=== PATIENT | male | born 1980 | race Two or more races ===

== ENCOUNTER 2017-04-23 07:10 | Day surgery (SDC) | payer BC ==
--- NOTE | 2017-04-22 17:47 | Pre-Procedure Note/Attestation ---
Pre-Procedure Note/Attestation Complete Prior to Procedure Planned Procedure: bilateral Procedure Narrative: 1. Septoplasty 2. SMR inf right turbinate 3. SMR inf left turbinate Indications for Procedure Pre-Operative Diagnosis: 1. Nasal septal deviation 2. Hypertrophied right inferior turbinate 3. Hypertrophied left inferior turbinate. Attestation I attest that I discussed the nature of the procedure; its benefits; risks and complications; and alternatives (and the risks and benefits of such alternatives ), prior to the procedure, with the patient (or the patient's legal pharmaceutical sales representative). I attest that, if there was a reasonable possibility of needing a blood transfusion, the patient (or the patient's legal pharmaceutical sales representative) was given the [place] Department [employer] standardized written summary, pursuant to the [place] Blood Safety Act ([place] Health and Safety Code # 1645, as amended). I attest that I re-evaluated the patient just prior to the surgery and that there has been no change in the patient's H&P, BEVERLY HEAD Apr 22, 2017 17:47
--- NOTE | 2017-04-22 17:48 | Brief Operative Note ---
Immediate Post Operative Note Operative Note Pre-op Diagnosis: 1. Nasal septal deviation 2. Hypertrophied right inferior turbinate 3. Hypertrophied left inferior turbinate. Procedure: 1. Septoplasty 2. SMR inf right turbinate 3. SMR inf left turbinate Post-op Diagnosis: 1.Nasal septal deviation 2. Hypertrophied right inferior turbinate 3. Hypertrophied left inferior turbinate Surgeon: Beverly Head Threading Machine Feeder Automatic: none Additional Surgeons: none Anesthesiologist: Aurea Anesthesia: general Specimen: none Complications: none Condition: stable Fluids: D5LR Estimated Blood Loss: volume - 10cc Packing: Stamberger nasal gel Implant(s) used?: No BEVERLY HEAD Apr 22, 2017 17:48
--- NOTE | 2017-04-22 17:56 | Discharge Instructions ---
Discharge Instructions Discharge Instructions Follow up with: Saturday04/29/17 9:45AM Diet: regular Resume Normal Activity?: No Activity: light activity Pneumonia Vaccine: pt refused vaccine Influenza Vaccine (Dec to May): pt refused vaccine Follow Up Orders Pt has printed inductions as well as rx for meds given to him pre op in office. Return to Work/School on: May 07, 2017 Special Instructions ice to face x 48 hours For Surgical Patients Dressing Care: may change Contact your physician for: bleeding, pain, tenderness, redness, swelling, yellowish discharge in the op. site For Congestive Heart Failure Reminder Report to your physician any weight gain of 5 pounds or more in one week. BEVERLY HEAD Apr 22, 2017 17:56
--- NOTE | 2017-04-22 23:30 | Pre-op HX & Phy Repo 2 SIG ---
DATE OF ADMISSION: 04/23/2017 DATE OF SURGERY: 04/23/2017 INDICATION FOR SURGERY: The patient is a 37-year-old male who has nasal airway obstruction and has failed nasal steroids and antihistamines. PAST MEDICAL HISTORY: Significant for the fact that he has never been a smoker. ALLERGIES: He has no known drug allergies. SOCIAL HISTORY: Single, no children. Denies issues with alcohol and drugs. Teaches martial arts. MAJOR EVENTS IN THE PAST: Broken back and a septoplasty when he was 14 years old. FAMILY HISTORY: Family members have diabetes mellitus. PHYSICAL EXAMINATION: VITAL SIGNS: Height 5 feet 8 inches, weight 185 pounds, BMI 28.13. Blood pressure 120/80, temperature 98.6, and pulse 76. This was done on 03/04/2017, so within the last few weeks. HEENT: The head is normocephalic. Eyes, PERRLA, EOMI. Lips, tongue, pharynx, and neck normal. No septal deviation. Hypertrophied bilateral inferior turbinates. HEART: Normal S1 and S2. No murmurs, bruits, gallops, or rubs. EXTREMITIES: Grossly normal. NEUROLOGIC: Cranial nerves II through XII grossly normal. GENITOURINARY: Not done, as not indicated, and he is followed by his regular PMD. ASSESSMENT: He has had a nasal septal deviation and hypertrophied right and left inferior turbinates. PLAN: He has been consented. We reviewed his signed consent for septoplasty and submucous resection of bilateral inferior turbinates. I also reviewed with family pre and postoperative care, for which he has printed instructions. He also has his prescriptions for [place] and amoxicillin. Aquilino White M.D. DR: KARIS JOB#: [id number] CC:
[2017-04-23] VITALS (11 sets, daily range): BP systolic 135–154; BP diastolic 78–93
[~2017-04-23] VITALS: Ht 175.3 cm; Wt 90.7 kg
[~2017-04-23 07:10] MED LIST: Bacitracin Oint 15gm Tube TOPIC ONE; Bupivacaine 0.5% Inj 30 ml vial INJ ONE; Cocaine HCl 4% 4ml vial TOPIC ONE; Lidocaine 1% 10mg/ml/EPI 0.01mg/ml 50ml INJ ONE
[2017-04-23] MEDS ORDERED: Bupivacaine 0.5% Inj 30 ml vial INJ ONE (07:16)
[2017-04-23] MEDS ORDERED: Lidocaine 1% 10mg/ml/Epi 0.005mg/ml 30ml vial INJ ONE (07:16)
[2017-04-23] MEDS ORDERED: Oxymetazoline 0.05% Na Spray 30ml NASAL ONE (07:17)
[2017-04-23] MEDS ORDERED: Bacitracin Oint 15gm Tube TOPIC ONE (07:28)
[2017-04-23] MEDS ORDERED: ARNICA PO (07:38)
[2017-04-23] MEDS ORDERED: NORCO 10-325 T1 EACH ORAL (07:38)
[2017-04-23] MEDS ORDERED: SOMA350 MG PO (07:38)
[2017-04-23] MEDS ORDERED: NS Irrig 1000ml ONE (08:00)
[2017-04-23] MEDS ORDERED: fentaNYL 100 mcg/2 mL IV ONE (08:00)
[2017-04-23] MEDS ORDERED: Midazolam 2mg/2ml Inj ONE (08:00)
[2017-04-23] MEDS ORDERED: Propofol 200mg/20ml IV ONE (08:00)
[2017-04-23] MEDS ORDERED: Sterile Water Irrig 1000ml IRRIG ONE (08:00)
[2017-04-23] MEDS ORDERED: Glycopyrrolate 0.2mg/ml 1ml Vial ONE (08:00)
[2017-04-23] MEDS ORDERED: LR 1000ml ONE (08:00)
[2017-04-23] MEDS ORDERED: Cocaine HCl 4% 4ml vial TOPIC ONE (08:14)
[2017-04-23] MEDS ORDERED: LR 1000ml 1,000 ML IVLG SCH (08:43)
[2017-04-23] MEDS ORDERED: LR 1000ml 1,000 ML IV SCH (08:45)
[2017-04-23] MEDS ORDERED: Norco 5mg/325mg tab ORAL PRN (08:45)
[2017-04-23] MEDS ORDERED: HYDROmorphone 1mg/ml Carpuject SUBQ PRN (08:45)
[2017-04-23] MEDS ORDERED: Meperidine 50mg/ml Inj(FOR RIGORS ONLY) IVP ONE (08:45)
[2017-04-23] MEDS ORDERED: Hydromorphone 0.5mg/0.5ml inj IVP PRN (08:45)
[2017-04-23] MEDS ORDERED: DiphenhydrAMINE 50mg/ml Inj IVP PRN (08:45)
--- NOTE | 2017-04-23 08:47 | Anethesia Preoperative Eval ---
Anesthesia Pre-op PMH/ROS General Date of Evaluation: Apr 23, 2017 Time of Evaluation: 07:50 Anesthesiologist: Aurea ASA Score: ASA 1 Mallampati Score Class I : Soft palate, uvula, fauces, pillars visible Class II: Soft palate, uvula, fauces visible Class III: Soft palate, base of uvula visible Class IV: Only hard plate visible Mallampati Classification: Class II Surgeon: Cindy Diagnosis: Deviated septum, hypertrophic turbinates Surgical Procedure: Septoplasty, turbinectomies Family History: no anesthesia problems Allergies: Coded Allergies: No Known Allergies (Unverified , 04/22/17) Medications: see eMAR Past Medical History Cardiovascular: Denies: HTN, CAD, [place], valve dz, arrhythmia, other Pulmonary: Denies: asthma, COPD, BARBY, other Gastrointestinal/Genitourinary: Denies: GERD, CRI, ESRD, other Neurologic/Psychiatric: Denies: dementia, CVA, depression/anxiety, TIA, other Endocrine: Denies: DM, hypothyroidism, steroids, other HEENT: Denies: cataract (L), cataract (R), glaucoma, [place] (L), [place] (R), other Hematology/Immune: Denies: anemia, DVT, bleeding disorder, other Musculoskeletal/Integumentary: Denies: OA, RA, DJD, DDD, edema, other PMH Narrative: Denies PSxH Narrative: Lumbar surgery Anesthesia Pre-op Phys. Exam Physician Exam Last Vital Signs Date Time Temp Pulse Resp B/P (MAP) Pulse Ox O2 Delivery O2 Flow Rate FiO2 04/23/17 07:47 97.3 75 20 142/88 97 Room Air Constitutional: NAD Neurologic: CN 2-12 intact Cardiovascular: RRR, no M/R/G Respiratory: CTA Gastrointestinal: S/NT/ND Airway Exam Mallampati Score: Class II MO: full ROM: full Teeth: intact Anesthesia Pre-op A/P Labs WNL Risk Assessment & Plan Assessment: Healthy male Plan: GA, LMA Status Change Before Surgery: No Pre-Antibiotics Drug: Ancef Given Within 1 Hr of Incision: Yes Time Given: 08:10 SOMAR ANTHONY M.D. Apr 23, 2017 08:47
--- NOTE | 2017-04-23 08:50 | Immediate Post-Op Evaluation ---
Immediate Post-Op Evalulation Immediate Post-Op Evalulation Procedure: Septoplasty, turbinectomies Date of Evaluation: Apr 23, 2017 Time of Evaluation: 08:55 IV Fluids: 500 Estimated Blood Loss: 10 Blood Pressure Systolic: 143 Blood Pressure Diastolic: 93 Pulse Rate: 69 Respiratory Rate: 17 O2 Sat by Pulse Oximetry: 100 Temperature (Fahrenheit): 97.6 Pain Score (1-10): 0 Nausea: No Vomiting: No Complications No complication Patient Status: awake, patent, none Hydration Status: adequate Drug: Ancef Given Within 1 Hr of Incision: Yes Time Given: 08:10 OSMAR ANTHONY M.D. Apr 23, 2017 08:49
--- NOTE | 2017-04-23 08:51 | 48 Hour Post Anesthesia Eval ---
Post Anesthesia Evaluation Procedure: Septoplasty, turbinectomies Date of Evaluation: Apr 23, 2017 Time of Evaluation: 09:20 Blood Pressure Systolic: 140 0: 89 Pulse Rate: 68 Respiratory Rate: 15 O2 Sat by Pulse Oximetry: 100 Airway: patent Nausea: No Vomiting: No - 2 Pain Intensity: 2 Hydration Status: adequate Cardiopulmonary Status: Stable Mental Status/LOC: patient returned to baseline Follow-up Care/Observations: As per surgery Post-Anesthesia Complications: No anesthetic complication Follow-up care needed: N/A OSMAR ANTHONY M.D. Apr 23, 2017 08:51
--- NOTE | 2017-04-24 22:15 | Operative Note - Dictated ---
DATE OF OPERATION: 04/23/2017 SURGEON: Aquilino White M.D. DEFENSIVE FIRE CONTROL SYSTEMS OPERATOR: None. ANESTHESIOLOGIST: Riaz Villar M.D. ANESTHESIA: LMA general anesthesia, 11 mL 1% lidocaine with 1:100,000 epinephrine, split 50-50 with bupivacaine 0.5% with 1:200,000 epinephrine. Also 4 mL of 4% topical cocaine placed on nasal pledgets. PREOPERATIVE DIAGNOSES: Septal deviation to the left. He did have previous septoplasty move back over and hypertrophied right and left inferior turbinates. POSTOPERATIVE DIAGNOSES: Septal deviation to the left. He did have previous septoplasty move back over and hypertrophied right and left inferior turbinates. FINDINGS: Septal deviation to the left. He did have previous septoplasty move back over and hypertrophied right and left inferior turbinates. PROCEDURE: 1. Septoplasty. 2. Submucous resection of the right inferior turbinate. 3. Submucous resection of the left inferior turbinate. TECHNIQUE: The patient was prepped and draped in the usual manner. Time-out was performed. All equipment was in the room and concurred by all in the room. The patient received his preop Decadron and antibiotic. Initially, incision was made in the right inferior turbinate with a 15 blade. Elevated submucosally with [place] elevator. Radiofrequency wand coated with saline setting of 6 x 10 seconds 2 times in either into the inferior turbinate. It was then outfractured with a Boies elevator. I then addressed the left inferior turbinate. Incision made with a 15 blade. Elevated submucosally with [place] elevator. Radiofrequency wand set at 6 x 10 seconds after coating with saline gel two sticks. I then proceeded to outfracture with a Boies elevator. Vern incision made on the left over the vomer, which was the main reason for the deviation to the left. I elevated the perichondrium and periosteum with a dental elevator. The vomer on the left was removed. Kodi forceps used to place the septum back in the midline. Remember, this septum was done elsewhere before and there was tissue missing already. I then sewed it closed with a 4-0 plain suture. Sponge and needle count correct. ESTIMATED BLOOD LOSS: 10 mL. COUNTS: None. DRAINS: None. The patient is stable and awake and breathing on his own in the operating room prior to transfer to the recovery room where 10 minutes later, he was still stable with insignificant bleeding on his mustache dressing. Aquilino White M.D. DR: DEYANIRA JOB#: [id number] CC: MARTHA
[2017-04-26] MEDS ORDERED: Dexamethasone 4mg/ml vial IVP ONE (07:00)
[2017-04-26] MEDS ORDERED: ceFAZolin sod 1 GM in D5W 55 ML IV ONE (09:00)
== END 2017-04-23 11:30 | disposition home or self-care (01) ==
LOC: SUR 07:10
DX: J34.2 Deviated nasal septum (principal); J34.3 Hypertrophy of nasal turbinates; Z83.3 Family history of diabetes mellitus
CPT/HCPCS: 30140; 30520; J0690; J2250; J2405; J2704; J3010; J3490; J7120; 94003; 94150